=== PATIENT | female | born 1960 | race Caucasian/White ===

== ENCOUNTER 2019-10-23 09:45 | Outpatient (CLI) | payer OTHER, SELFPAY ==
--- NOTE | ~2019-10-23 | MM_ITS ---
EXAMINATION: MM screening [facility] BI w ifeoma HISTORY: Screening mammogram TECHNIQUE: Craniocaudal and mediolateral oblique 3-D tomosynthesis images were obtained and synthetic 2-D images were generated. CAD analysis was submitted and interpreted. COMPARISON: 02/14/2018, 09/06/2016, 02/15/2015 BREAST PARENCHYMAL COMPOSITION: There are scattered areas of fibroglandular density. FINDINGS: Scattered benign-appearing calcifications are present. There is no evidence of suspicious m ass, calcification, or architectural distortion to suggest malignancy in either breast. There has bee n no suspicious interval change. IMPRESSION: 1. No mammographic evidence of malignancy. 2. Recommend routine screening mammography in one year. BI-RADS Category 2: Benign finding(s). Reviewed, dictated and finalized at location A.
== END 2019-10-23 09:46 | disposition home or self-care (01) ==
LOC: ANHIMG 09:47
PROVIDERS: PCP Family Medicine; Visit Provider Obstetrics & Gynecology
DX: Z12.31 Encounter for screening mammogram for malignant neoplasm of breast (principal)
CPT/HCPCS: 77063; 77067

== ENCOUNTER → 2021-05-09 03:34 | Outpatient (CLI) | payer OTHER, SELFPAY ==
[2021-05-09 16:43] LABS: SARS-CoV-2 RNA PCR Negative
== END ==
PROVIDERS: PCP Family Medicine; Visit Provider Internal Medicine Gastroenterology
DX: Z01.812 Encounter for preprocedural laboratory examination (principal); Z20.822 Contact with and (suspected) exposure to COVID-19
CPT/HCPCS: C9803; U0003; U0005

== ENCOUNTER 2021-05-12 02:25 | Day surgery (SDC) | payer OTHER, SELFPAY ==
--- NOTE | 2021-05-09 15:26 | PM.HPGS ---
History of Present Illness History of Present Illness Consent: Risks, benefits, and alternatives have been discussed and questions answered. Patient agrees to proceed with procedure. Chief complaint: rectal bleeding Narrative: [place] Morgan is a 61 year old female year old female presents to office for ER visit for rectal bleeding. She states on Wednesday morning she passed large amount of red blood with loose stools times 5 episodes. Reports reports blood was red in color, it was in the toilet and with blood clots. Rectal resolved later that night but returned 2 days later which prompted her to go ER, reports one episode while in the ER. Her H&H was normal and discharged later that day. She denies any rectal bleeding since but states stools are semi-soft and thin which is unusual for her. Prior to this, she reports regular formed BM once to twice a day. She denies any constipation, straining or large stools. No pain with BM. She denies any black stools. No N/V/abdominal pain/fever/weight loss. No family hx of CRC but father with colostomy, she is unsure why. Last colonoscopy in 2016 diverticulosis only. Review of Systems Review of Systems: All systems reviewed & are unremarkable except as noted in HPI and below PMFSH Past Medical History Medical History Breast cancer screening by mammogram Chronic neck pain Chronic pain of right wrist Degenerative joint disease of hand, left Depression Fever blister GERD (gastroesophageal reflux disease) Obese Right wrist pain Weight gain Family History Family History Father Patient's father is Acute myocardial infarction Mother Cerebrovascular accident Social History Social History Smoking status: Never smoker Alcohol intake: current Alcohol use details: 2 per month Living arrangements: with family Spiritual care concerns: No Meds Home Medications and Allergies Home Medications Medication Instructions Recorded Confirmed Type norethindrone (contraceptive) 0.35 0.35 mg PO DAILY tablet 06/09/19 05/12/21 History mg tablet omeprazole magnesium 20 mg 20 mg PO DAILY 06/09/19 05/12/21 History tablet,delayed release celecoxib 200 mg capsule 200 mg PO DAILY PRN #30 cap 03/31/21 05/12/21 Rx acyclovir 400 mg tablet 400 mg PO DAILY #90 tablet 04/22/21 05/12/21 Rx atorvastatin 10 mg tablet 10 mg PO DAILY #90 tablet 04/22/21 05/12/21 Rx fluoxetine 60 mg tablet 60 mg PO DAILY #90 tablet 04/23/21 05/12/21 Rx aspirin 325 mg PO DAILY 04/28/21 05/12/21 History Allergies Allergy/AdvReac Type Severity Reaction Status Date / Time clavulanic acid Allergy Mild Hives Verified 05/12/21 08:12 [From Augmentin] Exam Resp: Auscultation: clear to auscultation bilaterally Cardio: Rate: regular rate Rhythm: regular rhythm GI: GI Palp: Yes Soft to palpation and No Tenderness to palpation present (GI) Assessment and Plan Assessment and plan (1) Blood in stool: Code(s): K92.1 - Melena Status: Acute Assessment and Plan: Colonoscopy with possible biopsy or polypectomy or cautery or injection of substances.
[2021-05-12 08:13] VITALS: BP 133/96; PULSE 119; RESP 17; TEMP 36.2; O2SAT 96; BMI 29.9
[2021-05-12] MEDS: LACTATED RINGERS 1,000 ML 150 ML IV CONT (08:24)
--- NOTE | 2021-05-12 08:55 | P.PNAN_ITS ---
Anes - Initial Pre Proc Eval Procedure: Operation Date: 05/12/21 09:00 Proposed Procedures p Colonoscopy - Nav Marinelli MD Date/Time: 05/12/21 08:55 Surgeon: Nav Marinelli MD Pre Op Diagnosis: rectal bleeding Patient Data Age: 61 Gender: F Height: 1.6 m Weight: 76.6 kg Last Vital Signs Temp 97.1 F L 05/12/21 08:13 Pulse 119 H 05/12/21 08:13 Resp 17 05/12/21 08:13 BP 133/96 H 05/12/21 08:13 Pulse Ox 96 05/12/21 08:13 Allergies Allergy/AdvReac Type Severity Reaction Status Date / Time clavulanic acid Allergy Mild Hives Verified 05/12/21 08:12 [From Augmentin] Home Medications Medication Instructions Recorded Confirmed Type norethindrone (contraceptive) 0.35 0.35 mg PO DAILY tablet 06/09/19 05/12/21 History mg tablet omeprazole magnesium 20 mg 20 mg PO DAILY 06/09/19 05/12/21 History tablet,delayed release celecoxib 200 mg capsule 200 mg PO DAILY PRN #30 cap 03/31/21 05/12/21 Rx acyclovir 400 mg tablet 400 mg PO DAILY #90 tablet 04/22/21 05/12/21 Rx atorvastatin 10 mg tablet 10 mg PO DAILY #90 tablet 04/22/21 05/12/21 Rx fluoxetine 60 mg tablet 60 mg PO DAILY #90 tablet 04/23/21 05/12/21 Rx aspirin 325 mg PO DAILY 04/28/21 05/12/21 History Patient hx anesthesia problems: none Family hx anesthesia problems: none Results Review: All pre-operative results and documents have been reviewed as part of the pre-operative evaluation. [facility] Past Medical History Medical History Breast cancer screening by mammogram Chronic neck pain Chronic pain of right wrist Degenerative joint disease of hand, left Depression Fever blister GERD (gastroesophageal reflux disease) Obese Right wrist pain Weight gain Family History Family History Father Patient's father is Acute myocardial infarction Mother Cerebrovascular accident Social History Social History Smoking status: Never smoker Alcohol intake: current Alcohol use details: 2 per month Living arrangements: with family Spiritual care concerns: No Anes - Eval Final PreProcedure Day of Procedure 05/12/21 08:55 Patient weight: overweight Heart: regular rate and rhythm Lungs: clear to auscultation Airway: Mallampati scale class II Neurological: alert and oriented Last oral intake: >/= 8 hours ASA classification: III Emergent: no Anesthetic plan: proceed Anesthesia type and monitoring: general GIVS and standard monitoring Results Review: All pre-operative results and documents have been reviewed as part of the pre-operative evaluation. Informed Consent: The patient's anesthetic plan and its attendant risks and benefits were discussed with the patient/family/POA. Questions were solicited and answers provided to the satisfaction of the patient/family/POA.
[2021-05-12 09:22] VITALS: BP 109/72; PULSE 91; RESP 17; O2SAT 96
[2021-05-12 09:32] VITALS: BP 129/83; PULSE 96; RESP 20; O2SAT 99
[2021-05-12 09:42] VITALS: BP 148/94; PULSE 96; RESP 22; O2SAT 100
== END 2021-05-12 09:57 | disposition home or self-care (01) ==
PROVIDERS: PCP Family Medicine; Visit Provider Internal Medicine Gastroenterology
PROC: 0DJD8ZZ Inspection of Lower Intestinal Tract, Via Natural or Artificial Opening Endoscopic (ICD-10-PCS; CPT 45378; principal; 2021-05-12 09:00)
DX: K62.5 Hemorrhage of anus and rectum (principal); K57.30 Diverticulosis of large intestine without perforation or abscess without bleeding; K64.8 Other hemorrhoids; K21.9 Gastro-esophageal reflux disease without esophagitis; F32.9 Major depressive disorder, single episode, unspecified
CPT/HCPCS: 45378; C9803; J2001; J2704; J7120; U0003; U0005

== ENCOUNTER 2022-04-24 05:29 | Emergency (ER) | payer OTHER, SELFPAY ==
--- NOTE | ~2022-04-24 | CT_ITS ---
EXAMINATION: CT abdomen pelvis wo con DATE: 04/24/2022 06:35 INDICATION: Left lower quadrant abdominal pain TECHNIQUE: Computed tomography (CT) of the abdomen and pelvis was performed without intravenous contr ast. Automated exposure control and iterative reconstruction technique were employed. The dose-length product was 626.48 mGy-cm. COMPARISON: None FINDINGS: Atelectasis at the medial aspect of the bilateral lower lobes along side a large sliding-type hiatal hernia which contains essentially the entire stomach. Couple calcified gallstones within the otherwis e normal gallbladder. Liver, spleen, pancreas and bilateral adrenal glands are normal. Bilateral neph rolithiasis with stones measuring up to 2 mm in the left kidney and a 1-2 mm stone at the lower pole of the right kidney. 1-2 mm stone at the distalmost left ureter within 1 cm the ureterovesicular junc tion with mild left hydronephrosis and mild perinephric stranding. There is moderate colonic divertic ulosis with a sigmoid and descending colon predominance. There is no adjacent inflammatory change to suggest diverticulitis. Small bowel and appendix are normal. Bladder, uterus and bilateral adnexa ar e unremarkable. No free intraperitoneal gas or fluid. No pathologically enlarged abdominal or pelvic lymphadenopathy. Moderate to severe spondylosis at the lower thoracic and upper lumbar spine. IMPRESSION: 1. Bilateral nephrolithiasis with obstructing non-2 mm distal left ureteral stone with mild left hydr onephrosis. 2. Large sliding-type hiatal hernia. 3. Cholelithiasis. 4. Diverticulosis. Reviewed, dictated and finalized at location A. IMPRESSION: 1. Bilateral nephrolithiasis with obstructing non-2 mm distal left ureteral sto ne with mild left hydronephrosis. 2. Large sliding-type hiatal hernia. 3. Cholelithiasis. 4. Diverticulosis.
[2022-04-24 05:44] VITALS: BP 151/102; PULSE 101; RESP 16; O2SAT 96
--- NOTE | 2022-04-24 05:47 | ED.GENADULT ---
HPI - General Adult General Chief complaint: Urogenital-Female <Reggie Webster MD - Last Filed: 04/30/22 07:02> Stated complaint: flank pain <Reggie Webster MD - Last Filed: 04/30/22 07:02> Time Seen by Provider: 04/24/22 05:30 <Reggie Webster MD - Last Filed: 04/30/22 07:02> History of Present Illness HPI narrative: 61 year-old female presented the emergency department for evaluation of left lower quadrant pain. Patient states during the night she was having burning and chills. Patient states that she did have some pain with urination but began having some left lower quadrant pain. Patient suspected she was having a urinary tract infection. Patient denies any prior history of kidney stones. Patient denies any associated nausea or vomiting. <Reggie Webster MD - Last Filed: 04/30/22 07:02> Related Data Home medications: Home Medications Medication Instructions Recorded Confirmed omeprazole magnesium 20 mg 20 mg PO DAILY 06/09/19 12/01/21 tablet,delayed release (Prilosec OTC) aspirin 325 mg tablet 325 mg PO DAILY 04/28/21 12/01/21 <Reggie Webster MD - Last Filed: 04/30/22 07:02> Allergies/adverse reactions: Allergies Allergy/AdvReac Type Severity Reaction Status Date / Time clavulanic acid Allergy Mild Hives Verified 04/24/22 05:47 [From Augmentin] <Reggie Webster MD - Last Filed: 04/30/22 07:02> Review of Systems Review of Systems: CONSTITUTIONAL: Denies fever, chills, or sweats. EYES: Denies visual changes, redness, or discharge. ENT: Denies rhinorrhea, congestion, sore throat, or otalgia. CARDIOVASCULAR: Denies chest pain, palpitations, or edema. RESPIRATORY: Denies cough or dyspnea. GASTROINTESTINAL: Denies abdominal pain, nausea, vomiting, or diarrhea. GENITOURINARY: Left flank and left lower quadrant pain SKIN: Denies rash or itching. MUSCULOSKELETAL: Denies back pain, joint pain, or myalgia. NEUROLOGIC: Denies headache, numbness, or weakness. <Reggie Webster MD - Last Filed: 04/30/22 07:02> [facility] Past Medical History Medical History: Medical History (Updated 04/25/22 @ 00:00 by Background Dasole) Asymptomatic microscopic hematuria Breast cancer screening by mammogram Chronic neck pain Chronic pain of right wrist Colon cancer screening (05/12/21) normal colonoscopy 05/12/2021 with internal hemorrhoids and diverticulosis, we will recheck in 10 years Degenerative joint disease of hand, left Depression Fever blister GERD (gastroesophageal reflux disease) Obese Obesity (BMI 30.0-34.9) Right wrist pain Weight gain <Reggie Webster MD - Last Filed: 04/30/22 07:02> Family History Family History: Family History Father Patient's father is Acute myocardial infarction Mother Cerebrovascular accident <Reggie Webster MD - Last Filed: 04/30/22 07:02> Social History Social History: Social History Smoking status: Never smoker Alcohol intake: current Alcohol use details: 2 per month Spiritual care concerns: No <Reggie Webster MD - Last Filed: 04/30/22 07:02> Exam Narrative: APPEARANCE: Well appearing, no pain, no distress, well-nourished. HEAD: normocephalic, atraumatic. EYES: PERRLA/EOMI, conjunctivae clear. NOSE: Normal no drainage NECK: Supple. No adenopathy, no masses. RESPIRATORY: Airway patent, respirations nonlabored. Clear to auscultation bilaterally, no rales, rhonchi, wheezing. CARDIOVASCULAR: Regular rate and rhythm without murmurs rubs or gallops. ABDOMINAL: Soft, nontender, nondistended, normal bowel sounds MUSCULOSKELETAL: Moves all extremities. Strength/ROM intact, No edema, No calf tenderness. NEURO: Alert. Cranial nerves II through XII intact. Grossly intact SKIN: Warm, dry. Normal Color <Reggie Webster MD - Last Filed: 04/30/22 07:02> Course Cou
[2022-04-24 06:00] LABS: Basophils Percent Auto 0.3 % (0.2-1.2); Eosinophils Absolute Auto 0.1 K/mm3 (0-0.3); Eosinophils Percent Auto 0.7 % (0-4.4); Hematocrit 47.8 % (37.0-47.0); Hemoglobin 16.1 g/dL (12.0-15.0); Immature Granulocyte Absolute 0.05 K/mm3 (0.00-0.031); Immature Granulocyte Percent A 0.5 % (0-0.5); Lymphocytes Absolute Auto 0.76 K/mm3 (0.9-3.2); Lymphocytes Percent Auto 7.2 % (18.3-44.2); Mean Corpuscular HGB Conc 33.7 g/dl (32-36); Mean Corpuscular Hemoglobin 30.7 pg (26-34); Mean Corpuscular Volume 91.2 fl (80-100); Mean Platelet Volume 9.8 fl (7.4-10.4); Monocytes Absolute Auto 0.3 K/mm3 (0.1-0.6); Neutrophils Absolute Auto 9.3 K/mm3 (1.3-6.7); Neutrophils Percent Auto 88.3 % (45.5-73.1); Platelet Count Result 238 k/mm3 (150-375); Red Blood Count 5.24 M/mm3 (4.2-5.4); White Blood Count 10.5 K/mm3 (4.5-10.0)
[2022-04-24 06:08] LABS: Alanine Aminotransferase 31 U/L (6-35); Albumin Level 4.6 g/dL (3.5-5.1); Alkaline Phosphatase 127 U/L (38-126); Anion Gap 11 mmol/L (8-16); Aspartate Amino Transferase 35 U/L (14-36); Bilirubin,Total 0.7 mg/dL (0.2-1.3); Blood Urea Nitrogen 19 mg/dL (7-17); Calcium 8.9 mg/dL (8.4-10.2); Carbon Dioxide 24 mmol/L (22-30); Chloride 105 mmol/L (98-107); Estimated CRCL calculation 58 ml/min; Estimated Glomerular Filt Rate > 60; Glucose 152 mg/dL (65-110); Potassium 3.6 mmol/L (3.4-5.0); Sodium 140 mmol/L (137-145)
[2022-04-24 06:23] LABS: Appearance Urine Clear (Clear); Bilirubin Urine Negative (Negative); Blood Urine 2+ (Negative); Color Urine Light Yellow (Yellow); Glucose Urine UA Negative (Negative); Ketones Urine Trace mg/dL (Negative); Leukocyte Esterase Ur Negative LEU/UL (Negative); Nitrate Urine Negative (Negative); Protein Urine Negative (Negative); Urobilinogen Urine 0.2 mg/dL (<2.0); pH Urine 7.5 (5.0-9.0)
[2022-04-24 06:58] LABS: Mucus Urine Rare /lpf; RBC Urine 21-50 /hpf (0-2); Squamous Epithelial Cell Urine Rare /hpf (Few); WBC Urine 0-3 /hpf
[2022-04-24 07:08] LABS: Add Urine Microscopic? YES
[2022-04-24 09:50] VITALS: BP 141/88; PULSE 93; RESP 16; O2SAT 99
== END 2022-04-24 09:50 | disposition home or self-care (01) ==
PROVIDERS: Emergency Medicine; Emergency Provider Emergency Medicine; PCP Family Medicine
DX: N13.2 Hydronephrosis with renal and ureteral calculous obstruction (principal); K21.9 Gastro-esophageal reflux disease without esophagitis; E66.9 Obesity, unspecified; Z68.31 Body mass index [BMI] 31.0-31.9, adult; M19.042 Primary osteoarthritis, left hand; K44.9 Diaphragmatic hernia without obstruction or gangrene; K80.20 Calculus of gallbladder without cholecystitis without obstruction; K57.90 Diverticulosis of intestine, part unspecified, without perforation or abscess without bleeding; Z79.82 Long term (current) use of aspirin
CPT/HCPCS: 36415; 74176; 80053; 81001; 85025; 99284

== ENCOUNTER → 2022-05-18 12:54 | Outpatient (CLI) | payer OTHER, SELFPAY ==
--- NOTE | ~2022-05-18 | MM_ITS ---
EXAMINATION: MM screening [facility] BI w ifeoma HISTORY: Screening TECHNIQUE: Craniocaudal and mediolateral oblique 3-D tomosynthesis images were obtained and synthetic 2-D images were generated. CAD analysis was submitted and interpreted. COMPARISON: Comparison to multiple prior studies sequentially, with oldest reviewed study dated 01/02. BREAST PARENCHYMAL COMPOSITION: There are scattered areas of fibroglandular density. FINDINGS: There is no evidence of suspicious mass, calcification, or architectural distortion to sugg est malignancy in either breast. There has been no suspicious interval change. IMPRESSION: 1. No mammographic evidence of malignancy. 2. Recommend routine screening mammography in one year. BI-RADS Category 1: Negative Reviewed, dictated and finalized at location A.
== END ==
PROVIDERS: PCP Family Medicine; Visit Provider Obstetrics & Gynecology
DX: Z12.31 Encounter for screening mammogram for malignant neoplasm of breast (principal)
CPT/HCPCS: 77063; 77067

== ENCOUNTER → 2022-06-08 12:35 | Outpatient (CLI) | payer OTHER, SELFPAY ==
--- NOTE | ~2022-06-08 | DEXA_ITS ---
Bone Density Report Name: RY GARG Age: 62 Sex: Female Ethnicity: White Date of : 1960 Indication: postmenopausal; screening for osteoporosis; Referring Provider: Enedina Barr Study: Bone densitometry was performed. Exam Date: June 08, 2022 Accession number: [id number] Bone Density: Region BMD T-score Z-score Classification AP Spine (L1-L4) 1.006 -0.4 1.1 Normal Femoral Neck (Left) 0.732 -1.1 0.3 Osteopenia Total Hip (Left) 0.902 -0.3 0.7 Normal Femoral Neck (Right) 0.654 -1.8 -0.4 Osteopenia Total Hip (Right) 0.901 -0.3 0.7 Normal Total Hip Mean 0.902 -0.3 0.7 Normal World Health Organization criteria for BMD impression classify patients as: Normal (T-score at or above -1.0), Osteopenia (T-score between -1.0 and -2.5), or Osteoporosis (T-score at or below -2.5). 10-year Fracture Risk(1): Major Osteoporotic Fracture 8.6% Hip Fracture 0.9% Reported Risk Factors: [place] (), Neck BMD=0.654, BMI=30.7 (1) FRAX(R) Version 3.08. Fracture probability calculated for an untreated patient. Fracture probability may be lower if the patient has received treatment. Clinical Information Provided by Patient: Patient maximum height was 64 Menopause Age: 51 No regular weight bearing exercise Drinks caffeinated beverages Onset of menses at age 13 Number of children 2 Impression: The patient has low bone mass, based on the Right Femoral Neck T-score. The patient has an estimated ten-year risk of hip fracture of 0.9% and an estimated ten-year risk of major fracture of 8.6%, based on the WHO FRAX algorithm. Discussion: BONE DENSITY IS LOW AT ONE OR MORE SKELETAL SITES. This patient's lowest T-score is low at one or more skeletal sites. It meets the World Health Organization's (WHO) criteria for ?low bone mass? (T-score between -1.0 and -2.5). The patient's 10-year risk of fracture as calculated by FRAX is less than the threshold where pharmacological therapy is recommended by the National Osteoporosis Foundation (NOF). However, all treatment decisions require clinical judgment and consideration of individual patient factors, including patient preferences, comorbidities, previous drug use, risk factors not captured in the FRAX model (e.g., frailty, falls, vitamin D deficiency, increased bone turnover, interval significant decline in bone density) and possible under or overestimation of fracture risk by FRAX. The patient should follow a healthful lifestyle (good nutrition with adequate calcium and vitamin D, and appropriate weight-bearing exercise). Follow-Up: Consider repeating this study in 2 to 3 years to reassess this patient's status, or sooner if there is some new clinical indication. Reported by: ELVA on 06/08/2022 1:01:00 PM.
== END ==
PROVIDERS: PCP Family Medicine; Visit Provider Obstetrics & Gynecology
DX: Z78.0 Asymptomatic menopausal state (principal); M85.852 Other specified disorders of bone density and structure, left thigh; M85.851 Other specified disorders of bone density and structure, right thigh
CPT/HCPCS: 77080

== ENCOUNTER 2022-11-23 07:52 | Outpatient (CLI) | payer OTHER, SELFPAY ==
--- NOTE | ~2022-11-23 | US_ITS ---
US abdomen limited INDICATION: Abnormal levels of serum enzymes. PROCEDURE: Realtime right upper abdominal ultrasound. COMPARISON: No prior studies for comparison. FINDINGS: The pancreas is normal without focal mass or pancreatic ductal dilation. Liver echotexture is increased, consistent with fatty infiltration. No focal hepatic masses. There is normal directio nal flow in the portal vein. There are gallstones. Mild gallbladder wall thickening measuring 3 mm. Common bile duct measures 4 m m. No sonographic Alexander's sign. IMPRESSION: 1: Cholelithiasis with mild gallbladder wall thickening. 2: Hepatic steatosis. Reviewed, dictated and finalized at location B.
== END 2022-11-23 07:53 | disposition home or self-care (01) ==
PROVIDERS: PCP Family Medicine; Visit Provider Nurse Practitioner Family
DX: R74.8 Abnormal levels of other serum enzymes (principal); R79.89 Other specified abnormal findings of blood chemistry; K80.20 Calculus of gallbladder without cholecystitis without obstruction; K76.0 Fatty (change of) liver, not elsewhere classified
CPT/HCPCS: 76705

== ENCOUNTER 2023-02-01 13:20 | Outpatient (CLI) | payer OTHER, SELFPAY ==
--- NOTE | 2023-02-01 14:05 | ECG_ITS ---
Measurements Intervals [place] Rate: 86 P: 34 PA: 159 QRS: 46 QRSD: 83 T: 42 QT: 379 QTc: 455 Interpretive Statements SINUS RHYTHM NORMAL ECG NO PREVIOUS ECG AVAILABLE FOR COMPARISON Electronically Signed On 02-01-2023 14:36:23 CDT by Vick Jenkins D.O.
[2023-02-01 14:12] LABS: Basophils Percent Auto 0.7 % (0.2-1.2); Eosinophils Absolute Auto 0.2 K/mm3 (0-0.3); Eosinophils Percent Auto 3.8 % (0-4.4); Hematocrit 44.5 % (37.0-47.0); Hemoglobin 14.8 g/dL (12.0-15.0); Immature Granulocyte Absolute 0.01 K/mm3 (0.00-0.031); Immature Granulocyte Percent A 0.2 % (0-0.5); Lymphocytes Absolute Auto 1.31 K/mm3 (0.9-3.2); Lymphocytes Percent Auto 23.8 % (18.3-44.2); Mean Corpuscular HGB Conc 33.3 g/dl (32-36); Mean Corpuscular Hemoglobin 30.8 pg (26-34); Mean Corpuscular Volume 92.7 fl (80-100); Monocytes Absolute Auto 0.4 K/mm3 (0.1-0.6); Monocytes Percent Auto 6.4 % (2.6-8.5); Neutrophils Absolute Auto 3.6 K/mm3 (1.3-6.7); Neutrophils Percent Auto 65.1 % (45.5-73.1); Platelet Count Result 232 k/mm3 (150-375); White Blood Count 5.5 K/mm3 (4.5-10.0)
[2023-02-01 14:18] LABS: Appearance Urine Cloudy (Clear); Bacteria Urine None Seen /hpf; Bilirubin Urine Negative (Negative); Blood Urine Negative (Negative); Color Urine Dark Yellow (Yellow); Glucose Urine UA Negative (Negative); Ketones Urine Trace mg/dL (Negative); Leukocyte Esterase Ur 1+ LEU/UL (Negative); Nitrate Urine Negative (Negative); Protein Urine 2+ mg/dL (Negative); Specific Grav Ur 1.025 (1.001-1.035); Squamous Epithelial Cell Urine Few /hpf (Few); pH Urine 5.5 (5.0-9.0)
[2023-02-01 14:22] LABS: Add Urine Microscopic? YES
== END 2023-02-01 13:21 | disposition home or self-care (01) ==
PROVIDERS: PCP Family Medicine; Referring Provider Family Medicine; Visit Provider Orthopaedic Surgery
DX: D50.9 Iron deficiency anemia, unspecified (principal); E78.2 Mixed hyperlipidemia; M17.11 Unilateral primary osteoarthritis, right knee; Z01.818 Encounter for other preprocedural examination
CPT/HCPCS: 36415; 81001; 85025; 87086; 93005

== ENCOUNTER 2023-03-11 13:48 | Outpatient (CLI) | payer OTHER, SELFPAY ==
[2023-03-11 15:38] LABS: Urine Cotinine NEGATIVE
[2023-03-11 15:38] LABS: Prothrombin Time 13.9 Seconds (11.1-14.7)
[2023-03-11 15:40] LABS: Appearance Urine Clear (Clear); Bacteria Urine None Seen /hpf; Bilirubin Urine Negative (Negative); Blood Urine Negative (Negative); Color Urine Yellow (Yellow); Glucose Urine UA Negative (Negative); Ketones Urine Negative (Negative); Leukocyte Esterase Ur 2+ LEU/UL (Negative); Nitrate Urine Negative (Negative); Non Pathogenic Casts 0-2; Protein Urine Negative (Negative); RBC Urine 0-2 /hpf (0-2); Squamous Epithelial Cell Urine None seen /hpf (Few); Urobilinogen Urine 0.2 mg/dL (<2.0); WBC Urine 21-50 /hpf
[2023-03-11 15:40] LABS: Partial Thromboplastin Time 31.2 SECONDS (22.3-36.8)
[2023-03-11 15:46] LABS: Albumin Level 4.2 g/dL (3.5-5.1); Anion Gap 5 mmol/L (8-16); Blood Urea Nitrogen 20 mg/dL (7-17); Calcium 8.9 mg/dL (8.4-10.2); Carbon Dioxide 31 mmol/L (22-30); Chloride 104 mmol/L (98-107); Estimated Glomerular Filt Rate > 60; Glucose 120 mg/dL (65-110); Potassium 3.6 mmol/L (3.4-5.0); Sodium 140 mmol/L (137-145)
[2023-03-11 15:46] LABS: Hemoglobin A1C 5.2 % (<5.7)
[2023-03-11 15:49] LABS: Add Urine Microscopic? YES
== END 2023-03-11 13:49 | disposition home or self-care (01) ==
PROVIDERS: PCP Family Medicine; Visit Provider Orthopaedic Surgery
DX: D50.9 Iron deficiency anemia, unspecified (principal); M17.11 Unilateral primary osteoarthritis, right knee; Z01.818 Encounter for other preprocedural examination
CPT/HCPCS: 80048; 80307; 81001; 82040; 83036; 85610; 85730; 86850; 86900; 86901; 87081; 87086

== ENCOUNTER 2023-03-24 02:44 | Day surgery (SDC) | payer OTHER, SELFPAY ==
--- NOTE | 2023-03-11 13:30 | PC.NURSE ---
Addendum entered by Cyndi Davis RN 03/11/23 14:26: STOP ASPIRIN 7 DAYS PRIOR TO SURGERY, LAST DOSE TO BE TAKEN 03/16/23 Original Note: PRE-OP INSTRUCTIONS, PLEASE READ CAREFULLY Report to the Outpatient Waiting Room, entrance under the green pavilion located off [facility], at time _0830_ on date _03/24/23_. Planned Procedure Time: _1030_. PACK A SMALL OVERNIGHT BAG AND LEAVE IN THE CAR ALONG WITH YOUR WALKER Time changes happen often and if your time is changed the preop area will call you the afternoon before. - You and your visitor will be asked to self-screen and do not enter if you have any COVID symptoms. - A mask is optional within the hospital at this time. -VISITING HOURS 8AM-8PM Patients may have clear liquids (water, carbonated beverages, clear teas, apple juice) until 3 hours prior to surgery (0730 AM) with a maximum of 20 ounces. - No food from midnight until time of surgery Take the following medications with a SIP of water the morning of surgery: _NONE_ DO NOT STOP ANY OF YOUR OTHER PRESCRIPTION MEDICATIONS PRIOR TO SURGERY ?EXCEPT THE FOLLOWING Medications to discontinue - _ASPIRIN CALL DR. GARCIA'S OFFICE FOR INSTRUCTIONS, Date to take last dose_ Please no make-up, nail chadian, hairspray, perfume, deodorant, or body powder the day of surgery. No jewelry (including any body piercings) or valuables the day of surgery, leave them at home. Please take a shower or bath the night before, or the morning of, surgery with an antibacterial soap. Wear comfortable, loose fitting clothing. - Jewelry must be removed prior to entering the operating room. Rings and piercings that are not removed may be cut off. - The hospital will not accept responsibility for valuables. - Please leave all valuables, including medications, at home the day of surgery. If you are going home after surgery, a licensed local flatbed driver must drive you home. - NO public transportation without another adult if you receive anesthesia. - We recommend that an adult stay with you for 24 hours following discharge. - We also recommend that you do not drive, make important decision, drink alcoholic beverages, or take any drugs that were not prescribed by your health care provider for at least 24 hours after your discharge time. - FOLLOW ALL INSTRUCTIONS GIVEN TO YOU BY YOUR SURGEON - NIKOLAS DIRECTED If you or anyone in your household have experienced Covid symptoms in the past week, please notify your surgeon or the nurse liaison at the phone number below for possible testing. Instructions given to _PATIENT_and asked if any additional questions and then verbalized understanding. Patient advised to call surgeon office or pre surgery nurse liaison [phone] if any additional questions.
[2023-03-11 13:59] VITALS: BP 150/90; PULSE 98; RESP 20; TEMP 37; O2SAT 96; BMI 32.1
[2023-03-24] VITALS (15 sets, daily range): BP systolic 135–190; BP diastolic 71–111; PULSE 78–109; RESP 8–18; TEMP 35.7–37; O2SAT 92–100; BMI 33.8
--- NOTE | ~2023-03-24 | XR_ITS ---
EXAMINATION: [id number] DATE: 03/24/2023 13:16 INDICATION: Postoperative evaluation following right total knee arthroplasty. TECHNIQUE: Anteroposterior and lateral views of the right knee were obtained. COMPARISON: None. FINDINGS: Right total knee arthroplasty without patellar resurfacing appears well seated and in near anatomic a lignment. No fractures identified. Anterior skin sedrick and expected postoperative subcutaneous, in tramedullary and intra-articular gas. IMPRESSION: 1. Right total knee arthroplasty, negative for postoperative purposes. Reviewed, dictated and finalized at location A.
--- NOTE | 2023-03-24 07:25 | WPDHPUPDATE1 ---
History and Physical Update Update Date/Time: 03/24/23 07:25 History and Physical has been reviewed, including an updated exam of the patient. There are NO changes in the patient's condition. Risks, benefits, and alternatives have been discussed and questions answered. Patient agrees to proceed with procedure.
--- NOTE | 2023-03-24 08:55 | WPDANESEPPF ---
Anes - Initial Pre Proc Eval Procedure: Operation Date: 03/24/23 10:30 Proposed Procedures p Right Total Knee Arthroplasty - Fish Grace MD Date/Time: 03/24/23 08:55 Surgeon: Fish Grace MD Pre Op Diagnosis: Rt Knee DJD Patient Data Age: 62 Gender: F Height: 1.6 m Weight: 82.3 kg Last Vital Signs Temp 37.0 C 03/11/23 13:59 Pulse 98 03/11/23 13:59 Resp 20 03/11/23 13:59 BP 150/90 H 03/11/23 13:59 Pulse Ox 96 03/11/23 13:59 O2 Del Method Room Air 03/11/23 13:59 Allergies Allergy/AdvReac Type Severity Reaction Status Date / Time clavulanic acid Allergy Mild Hives Verified 03/24/23 09:22 [From Augmentin] Home Medications Medication Instructions Recorded Confirmed Type omeprazole magnesium 20 mg 20 mg PO DAILY 06/09/19 03/24/23 History tablet,delayed release (Prilosec OTC) aspirin 325 mg tablet 325 mg PO DAILY 04/28/21 03/24/23 History acyclovir 400 mg tablet 400 mg PO DAILY #90 tabs 07/08/22 03/24/23 Rx chlorhexidine gluconate 4 % 1 applic topical DAILY #237 mL 03/11/23 03/24/23 Rx topical liquid (Hibiclens) duloxetine 60 mg capsule,delayed 60 mg PO DAILY 03/11/23 03/24/23 History release atorvastatin 10 mg tablet 10 mg PO DAILY #90 tabs 03/23/23 03/24/23 Rx celecoxib 200 mg capsule (Celebrex) 200 mg PO DAILY PRN pain #30 caps 03/23/23 03/24/23 Rx Patient hx anesthesia problems: none Family hx anesthesia problems: none Results Review: All pre-operative results and documents have been reviewed as part of the pre-operative evaluation. [facility] Past Medical History Medical History (Updated 03/24/23 @ 08:56 by Andrea Day DO) Anxiety Asymptomatic microscopic hematuria Blood typing encounter (03/11/23) AB+, antibody negative BMI 31.0-31.9,adult Breast cancer screening by mammogram Cholelithiasis multiple gallstones on ultrasound 5/8/3 with mild thickening of the gallbladder wall and fatty changes the liver. Chronic neck pain Chronic pain of right wrist Colon cancer screening (05/12/21) normal colonoscopy 05/12/2021 with internal hemorrhoids and diverticulosis, we will recheck in 10 years CVA (cerebral vascular accident) age 46 Degenerative joint disease of hand, left Depression DVT (deep venous thrombosis) Elevated alkaline phosphatase level alkaline phosphatase 154 with AST 28 and ALT 36 on 09/26/2022, previous 127, 120, 106. Elevated liver function tests Fatty infiltration of liver fatty changes of the liver on abdominal ultrasound 11/23/2022. Fever blister Gastroenteritis GERD (gastroesophageal reflux disease) Left ureteral stone (04/24/22) 2 mm distal left ureteral stone 04/24/2022 with bilateral renal stones. Obese Obesity (BMI 30.0-34.9) Right wrist pain UTI (urinary tract infection) Weight gain Family History Family History Father Patient's father is Acute myocardial infarction Mother Cerebrovascular accident Social History Social History Smoking status: Never smoker Second hand tobacco smoke exposure: Yes (SPOUSE) Additional smoking assessment comments: PT DENIES ALL FORMS OF TOBACCO USE Alcohol intake: current Alcohol use details: 1-2/MONTH Substance use: never Substance use type: does not use Lack of Transportation: No Lack of Food: Never True Current Housing: I Have Housing Concerned About Future Housing: No Difficulty Paying Gas/Electric Bills: No Difficulty Paying for Meds: No Currently Unemployed: No Education: High School Diploma/GED Difficulty w/ Childcare or Family Care: No Living arrangements: with family Spiritual care concerns: No Anes - Eval Final PreProcedure Day of Procedure 03/24/23 08:55 Patient weight: obese Heart: regular rate and rhythm Lungs: clear to auscultation Airway: Mallampati scale class II Neuro
--- NOTE | 2023-03-24 08:56 | WPDANESPNB ---
Anes - Peripheral Nerve Block Date/Time: 03/24/23 08:56 I have discussed with the patient/family/POA the placement of a peripheral nerve block for post-operative pain management, including associated risks, benefits, complications, and side effects. Alternative methods of post-operative analgesia were detailed. Questions were solicited and answers provided to the satisfaction of the patient/family/POA. Time-Out: A pre-procedural Time-Out was completed immediately before starting the procedure and confirmed: Patient Identification, Site, Procedure, Patient Position and the Availability of Requisite Equipment. Clinical Indications: Acute post-operative pain management requested by the operative surgeon. Nerve Block Insertion Note Anes-nerve block: adductor canal right Patient position: supine Skin prep: chlorhexidine Needle: 22 gauge, stimulating, insulated echogenic needle. Needle length: 80 mm Technique: ultrasound Injectate: bupivacaine 0.5% with epi 5 mcg/ml (30cc - no epi) Observations: tolerated well Complications: none Procedure start time:: 1019 Procedure end time:: 1023
[2023-03-24] MEDS: LACTATED RINGERS 1,000 ML 30 ML IV CONT ×2 (09:33→12:48)
[2023-03-24] MEDS: ACETAMINOPHEN 500 MG TABLET 1000 MG PO (10:00)
[2023-03-24] MEDS: TRANEXAMIC ACID 1,000MG/ISO100 1,000 MG/100 ML BAG 200 MG IVPB (10:01)
[2023-03-24] MEDS: ceFAZolin 2 GM/D5W 50 ML 2 GM/50 ML BAG IVPB ×2 (10:43→18:45)
[2023-03-24] MEDS: TRANEXAMIC ACID 1,000 MG/10 ML AMPUL 1000 MG IV PUSH (11:57)
[2023-03-24] MEDS: GENTAMICIN BONE CEMENT REFOBACIN 1 EACH TOPICAL (12:04)
--- NOTE | 2023-03-24 12:42 | W.PM.PROC2 ---
Procedure Note - Detailed Date of Procedure 03/24/23 Pre-op Diagnosis Rt Knee DJD Post-op Diagnosis Same Procedure Performed R TKA Surgeon Fish Grace MD Anesthesia General Description of Procedure THE RIGHT KNEE WAS PREPPED AND DRAPED IN THE STERILE FASHION. THERE WAS A 10 DEGREE FLEXION CONTRACTURE. A MIDLINE SKIN INCISION WAS MADE. A MEDIAL PARAPATELLAR ARTHROTOMY WAS MADE. THE PATELLA WAS EVERTED. THERE WAS TRICOMPARTMENT DJD. THERE WAS MINIMAL PATELLA DJD. AN INTRAMEDULLARY SRI WAS PLACED IN THE FEMUR. A DISTAL FEMORAL CUT WAS MADE IN 5 DEGREES OF VALGUS REMOVING APPROXIMATELY 9 MM OF BONE FROM THE DISTAL FEMUR. THE FEMUR WAS SIZED TO 62.5. A 62.5 FEMORAL CUTTING BLOCK WAS PLACED IN 3 DEGREES OF EXTERNAL ROTATION AND IN ALIGNMENT WITH PETRA'S LINE AND THE TRANSEPICONDYLAR AXIS. ANTERIOR POSTERIOR AND CHAMFER CUTS WERE MADE. THE CUTS WERE EXCELLENT. NEXT AN INTRAMEDULLARY CUTTING GUIDE WAS PLACED IN THE TIBIA. A TRANS TIBIAL CUT WAS MADE ALONG THE LONG AXIS OF THE TIBIA. APPROXIMATELY 10 MM OF BONE WAS REMOVED FROM THE HIGH SIDE OF THE TIBIA. THE TIBIA WAS THEN PLANED TO A SMOOTH SURFACE. POSTERIOR FEMORAL OSTEOPHYTES WERE REMOVED FROM THE FEMORAL CONDYLES. A 71 TIBIAL TRIAL WAS PLACED IN ALIGNMENT WITH THE 1/3 MEDIAL ASPECT OF THE TIBIAL TUBERCLE. THEN A 62.5 FEMORAL TRIAL COMPONENT WAS PLACED. BOTH HAD EXCELLENT FITS. EVENTUALLY AN 11 MM CR POLYETHYLENE TRIAL COMPONENT WAS PLACED. THE KNEE WAS TAKEN THROUGH A RANGE OF MOTION. THE KNEE CAME OUT TO FULL EXTENSION. THERE WAS NO ABNORMAL TILT TO THE PATELLA. THERE WAS GOOD A/P AND VARUS/VALGUS STABILITY. THERE WAS NO EXCESSIVE ROLL BACK WITH FLEXION. THE TRIAL COMPONENTS WERE REMOVED. THEN A 62.5 FEMORAL COMPONENT AND 71 TIBIAL COMPONENT WITH AN 11 CR POLYETHYLENE COMPONENT WERE CEMENTED INTO PLACE. ONCE THE CEMENT WAS HARD THE KNEE WAS TAKEN THROUGH A ROM AGAIN AND FOUND TO BE STABLE WITH NO PATELLA TILT NO EXCESSIVE ROLL BACK WITH FLEXION AND GOOD STABILITY WITH COMPLETE AND FULL EXTENSION. THE KNEE WAS IRRIGATED WITH STERILE BETADINE AND WATER FOR ABOUT 3 MINUTES. THE BLEEDERS WERE CAUTERIZED. THE ARTHROTOMY WAS REPAIRED WITH NUMBER 1 VICRYL. THE SUB CUTANEOUS LAYER WITH 2-0 VICRYL AND THE SKIN WITH ALIDA. THE WOUND WAS WASHED AND A STERILE DRESSING WAS APPLIED. PATIENT WAS EXTUBATED. Estimated Blood Loss -150.0 Pathology None sent Complications No immediate complications Condition Stable Disposition PACU
[2023-03-24] MEDS: LABETALOL HCL INJ 100 MG/20 ML VIAL IV PUSH (13:39)
--- NOTE | 2023-03-24 13:44 | SUR.PHASEI ---
1342: Simple mask removed.
[2023-03-24] MEDS: ONDANSETRON INJ 4 MG/2 ML VIAL IV PUSH (18:45)
[2023-03-24] MEDS: KETOROLAC 15 MG/ML VIAL (*BKC) IV PUSH (18:46)
[2023-03-24] MEDS: SODIUM CHLORIDE 0.9% IV 1,000 ML 125 ML IV CONT (18:48)
[2023-03-24] MEDS: SENNA/DOCUSATE SODIUM TABLET 2 TAB PO (18:56)
[2023-03-24] MEDS: FAMOTIDINE 20 MG TABLET PO (20:02)
[2023-03-25 01:00] VITALS: BP 130/75; PULSE 99; RESP 20; TEMP 35.8; O2SAT 97
[2023-03-25] MEDS: KETOROLAC 15 MG/ML VIAL (*BKC) IV PUSH ×3 (01:24→13:10)
[2023-03-25] MEDS: ceFAZolin 2 GM/D5W 50 ML 2 GM/50 ML BAG IVPB ×2 (01:25→10:20)
[2023-03-25 06:00] VITALS: BP 125/78; PULSE 107; RESP 18; TEMP 36.8; O2SAT 97
[2023-03-25 06:54] LABS: Basophils Percent Auto 0.1 % (0.2-1.2); Hematocrit 37.9 % (37.0-47.0); Hemoglobin 12.5 g/dL (12.0-15.0); Immature Granulocyte Absolute 0.05 K/mm3 (0.00-0.031); Immature Granulocyte Percent A 0.4 % (0-0.5); Lymphocytes Percent Auto 7.6 % (18.3-44.2); Mean Corpuscular Hemoglobin 31.3 pg (26-34); Mean Corpuscular Volume 94.8 fl (80-100); Mean Platelet Volume 9.9 fl (7.4-10.4); Monocytes Absolute Auto 0.7 K/mm3 (0.1-0.6); Neutrophils Absolute Auto 10.2 K/mm3 (1.3-6.7); Neutrophils Percent Auto 85.9 % (45.5-73.1); Platelet Count Result 195 k/mm3 (150-375); Red Cell Distribution Width 13.5 % (11.5-14.5); White Blood Count 11.9 K/mm3 (4.5-10.0)
[2023-03-25 06:55] LABS: Anion Gap 5 mmol/L (8-16); Blood Urea Nitrogen 14 mg/dL (7-17); Calcium 8.4 mg/dL (8.4-10.2); Carbon Dioxide 27 mmol/L (22-30); Chloride 106 mmol/L (98-107); Estimated CRCL calculation 67 ml/min; Estimated Glomerular Filt Rate > 60; Glucose 111 mg/dL (65-110); Sodium 138 mmol/L (137-145)
[2023-03-25 09:26] VITALS: O2SAT 96
[2023-03-25] MEDS: ATORVASTATIN 10 MG TABLET PO (10:19)
[2023-03-25] MEDS: SENNA/DOCUSATE SODIUM TABLET 2 TAB PO ×2 (10:19→16:47)
[2023-03-25] MEDS: FAMOTIDINE 20 MG TABLET PO (10:19)
[2023-03-25] MEDS: polyethylene glycoL 3350 17 GM POWD.PACK PO (10:19)
[2023-03-25] MEDS: ASPIRIN 325 MG TABLET PO (10:20)
--- NOTE | 2023-03-25 13:10 | WPDANESPN ---
Anes - Prog Note Post-Op Date/Time: 03/25/23 13:10 Cardiovascular status: normal Respiratory status: normal Airway patency: baseline Mental status: baseline Post-Op hydration status: normal Vital Signs: Last Vital Signs Temp 36.8 C 03/25/23 06:00 Pulse 107 H 03/25/23 06:00 Resp 18 03/25/23 06:00 BP 125/78 03/25/23 06:00 Pulse Ox 96 03/25/23 09:26 O2 Del Method Room Air 03/25/23 09:26 O2 Flow Rate 6 03/24/23 13:30 Pain Score (VAS): 0/10 I/O: Intake & Output 03/24/23 03/25/23 03/25/23 23:59 07:59 15:59 Intake Total 290 1250 404 Output Total 500 Balance -210 1250 404 Laboratory Tests 03/25/23 06:08 03/25/23 06:08 03/25/23 06:08 WBC 11.9 H RBC 4.00 L Hgb 12.5 Hct 37.9 MCV 94.8 MCH 31.3 MCHC 33.0 RDW 13.5 Plt Count 195 MPV 9.9 Immature Gran % (Auto) 0.4 Neut % (Auto) 85.9 H Lymph % (Auto) 7.6 L [place] % (Auto) 6.0 Eos % (Auto) 0.0 Baso % (Auto) 0.1 L Lymph # (Auto) 0.90 [place] # (Auto) 0.7 H Eos # (Auto) 0.0 Baso # (Auto) 0.0 Abs Immat Gran (auto) 0.05 H Absolute Neuts (auto) 10.2 H Absolute Nucleated RBC 0.0 Nucleated RBC % 0.0 Sodium 138 Potassium 4.0 Chloride 106 Carbon Dioxide 27 Anion Gap 5 L BUN 14 D Creatinine 0.80 Estim Creat Clear Calc 67 Estimated GFR > 60 Glucose 111 H Calcium 8.4 Post-procedural complaints: none Patient Feedback: Patient satisfied with anesthetic care. Other Findings: nerve block works well.
[2023-03-25 13:50] VITALS: BP 117/73; PULSE 114; RESP 18; TEMP 36.9; O2SAT 98
--- NOTE | 2023-03-25 16:38 | PM.PNORT ---
Progress Note: A&P Assessment and Plan (1) DJD (degenerative joint disease) of knee: Qualifiers: Laterality: bilateral Osteoarthritis type: primary Qualified Code(s): M17.0 - Bilateral primary osteoarthritis of knee Code(s): M17.9 - Osteoarthritis of knee, unspecified Status: Acute Assessment and Plan: POD 1 DOING WELL. OK TO DC HOME F/U IN 3 WEEKS. Subjective Subjective Date/Time Seen: 03/25/23 16:38 Interval history: POD 1 DOING WELL. NO CALF PAIN. GOOD PROGRESS WITH PT Exam Extrem: Other: VSS AFEBRILE DRESSING DRY NV INTACT NEG HOMANS SIGN CALF SOFT NON TENDER Objective Data Vital Signs Vital Signs: Vital Signs - 24 hr 03/24/23 16:51 03/24/23 17:28 03/24/23 22:00 Temperature 36.0 C L 35.7 C L Pulse Rate 78 97 Respiratory Rate 12 16 Blood Pressure 135/75 139/71 Pulse Oximetry 97 96 Oxygen Delivery Room Air 03/25/23 01:00 03/25/23 06:00 03/25/23 09:26 Temperature 35.8 C L 36.8 C Pulse Rate 99 107 H Respiratory Rate 20 18 Blood Pressure 130/75 125/78 Pulse Oximetry 97 97 96 Oxygen Delivery Room Air 03/25/23 13:50 Temperature 36.9 C Pulse Rate 114 H Respiratory Rate 18 Blood Pressure 117/73 Pulse Oximetry 98 Oxygen Delivery Intake/Output Intake/Output: Intake & Output 03/22/23 03/23/23 03/24/23 03/25/23 23:59 23:59 23:59 23:59 Intake Total 840 2154 Output Total 850 Balance -10 2154 Meds/Results Medications: Active Medications Generic Name Dose Route Start Last Admin Trade Name Freq PRN Reason Stop Dose Admin Acetaminophen 1,000 mg 03/24/23 15:32 Acetaminophen 500 Mg Tablet PO Q6H PRN Pain Rated 1-3 Aspirin 325 mg 03/25/23 09:00 03/25/23 10:20 Aspirin 325 Mg Tablet PO 325 mg DAILY HENNA Administration Atorvastatin Calcium 10 mg 03/25/23 09:00 03/25/23 10:19 Atorvastatin 10 Mg Tablet PO 10 mg HS HENNA Administration Diazepam 5 mg 03/24/23 15:32 Diazepam (*Crx) 5 Mg Tablet PO Q8H PRN Spasms Diphenhydramine HCl 25 mg 03/24/23 15:32 Diphenhydramine Hcl Inj 50 Mg/Ml Vial IV PUSH Q6H PRN Itching Famotidine 20 mg 03/24/23 21:00 03/25/23 10:19 Famotidine 20 Mg Tablet PO 20 mg Q12HR HENNA Administration Ketorolac Tromethamine 15 mg 03/25/23 00:00 03/25/23 13:10 Ketorolac 15 Mg/Ml Vial (*Bkc) IV PUSH 03/25/23 18:01 15 mg Q6HR HENNA Administration Naloxone HCl 0.1 mg 03/24/23 15:32 Naloxone Hcl 0.4 Mg/Ml Vial IV PUSH Q2M PRN Opiate Reversal Ondansetron HCl 4 mg 03/24/23 15:32 03/24/23 18:45 Ondansetron Inj 4 Mg/2 Ml Vial IV PUSH 4 mg Q4H PRN Administration Nausea And Vomiting Oxycodone/Acetaminophen 1 tablet 03/24/23 15:32 Oxycodone/Acetaminophen (*Crx) 5-325 Mg Tablet PO Q4H PRN Pain Rated 4-6 Oxycodone/Acetaminophen 2 tablet 03/24/23 15:32 Oxycodone/Acetaminophen (*Crx) 5-325 Mg Tablet PO Q6H PRN Pain Rated 7-10 Polyethylene Glycol 17 gm 03/25/23 09:00 03/25/23 10:19 Polyethylene Glycol 3350 17 Gm Powd.Pack PO 17 gm QAM HENNA Administration Senna/Docusate Sodium 2 tab 03/24/23 17:00 03/25/23 10:19 Senna/Docusate Sodium Tablet PO 2 tab BID HENNA Administration Radiology Results: ITS Impressions Knee X-Ray 03/24/23 13:20 IMPRESSION: 1. Right total knee arthroplasty, negative for postoperative purposes. Labs Labs: Laboratory Results - last 24 hr 03/25/23 06:08 WBC 11.9 H RBC 4.00 L Hgb 12.5 Hct 37.9 MCV 94.8 MCH 31.3 MCHC 33.0 RDW 13.5 Plt Count 195 MPV 9.9 Immature Gran % (Auto) 0.4 Neut % (Auto) 85.9 H Lymph % (Auto) 7.6 L [place] % (Auto) 6.0 Eos % (Auto) 0.0 Baso % (Auto) 0.1 L Lymph # (Auto) 0.90 [place] # (Auto) 0.7 H Eos # (Auto) 0.0 Baso # (Auto) 0.0 Abs Immat Gran (auto) 0.05 H Absolute Neuts (auto) 10.2 H Absolute Nucleated RBC 0.0 Nucleated RBC % 0.0 Sodium 138 Potass
--- NOTE | 2023-03-25 16:40 | PM.DS ---
DS: Admitting Diagnosis Discharge Date 03/25/23 Admitting Diagnosis RIGHT KNEE DJD DS: Discharge Diagnosis Discharge Diagnosis (1) DJD (degenerative joint disease) of knee: Qualifiers: Osteoarthritis type: primary Laterality: bilateral Qualified Code(s): M17.0 - Bilateral primary osteoarthritis of knee Code(s): M17.9 - Osteoarthritis of knee, unspecified Status: Acute DS: Summary Hospital Course Reason for hospitalization: RIGHT TKA Hospital Course: PATIENT WAS ADMITTED S/P TOTAL KNEE ARTHROPLASTY FOR POSTOPERATIVE MEDICAL MANAGEMENT, PAIN CONTROL AND MOBILIZATION WITH PHYSICAL AND OCCUPATIONAL THERAPY. THE PATIENT PROGRESSED WELL WITH PT/OT. LABS AND VITALS REMAINED STABLE AND PAIN WELL CONTROLLED. THE PATIENT HAS BEEN CLEARED TO BE DISCHARGED HOME. FOLLOW UP APPOINTMENT SCHEDULED. DISCHARGE INSTRUCTIONS DISCUSSED AT LENGTH WITH THE PATIENT. MEDICATIONS REVIEWED. Status at Discharge Cognitive/behavioral status at discharge: STABLE Time Spent with Patient Time attestation: Total time spent providing and/or coordinating discharge services: DS: Data Data Completed and Pending Labs on day of discharge: Labs from last 24 hours 03/25/23 06:08 WBC 11.9 H RBC 4.00 L Hgb 12.5 Hct 37.9 MCV 94.8 MCH 31.3 MCHC 33.0 RDW 13.5 Plt Count 195 MPV 9.9 Immature Gran % (Auto) 0.4 Neut % (Auto) 85.9 H Lymph % (Auto) 7.6 L [place] % (Auto) 6.0 Eos % (Auto) 0.0 Baso % (Auto) 0.1 L Lymph # (Auto) 0.90 [place] # (Auto) 0.7 H Eos # (Auto) 0.0 Baso # (Auto) 0.0 Abs Immat Gran (auto) 0.05 H Absolute Neuts (auto) 10.2 H Absolute Nucleated RBC 0.0 Nucleated RBC % 0.0 Sodium 138 Potassium 4.0 Chloride 106 Carbon Dioxide 27 Anion Gap 5 L BUN 14 D Creatinine 0.80 Estim Creat Clear Calc 67 Estimated GFR > 60 Glucose 111 H Calcium 8.4 Discharge Plan Discharge Patient Disposition: Home Health Service Discharge Instructions: Per Care Coordination, patient to discharge with [facility] ) for PT/OT and [place] [facility] services. Agency will call to arrange initial visit. Post Op Total Knee Replacement Instructions Dr. Fish Grace [phone] Your dressing will be changed prior to your discharge. You will be sent home with one additional dressing to be changed on post op day 7 by the home health RN. Your sedrick will be removed on the 14th day after surgery and steri-strips will be placed. Please practice good hand hygiene and do not touch your incision in order to prevent infection. You may shower with your dressing but do not submerge in a bath tub. Do not drive or operate machinery until you are released by Dr. Grace. Do not walk without a walker for any reason until you are released by Dr. Grace. Continue to use your ice machine. Please use a towel or pillow case to protect your skin before applying your ice machine. Do NOT place a pillow under your knee. You may use a pillow from the calf down if needed. This will prevent a flexion contracture postoperatively. You may begin use of your CPM machine at home if you have been given one pre-operatively. DO NOT USE WHILE YOU ARE SLEEPING. Your first post op appointment was sent to you via mail preoperatively. If you have any questions or are unable to make your appointment, please contact our office for scheduling questions. Your medications have been sent to your pharmacy. You have been sent home with pain medication. Please fish bait picker an over the counter stool softener to prevent constipation due to narcotic use. Please keep this in mind during your postoperative recovery. If you are not experiencing regular bowel movements, please contact our office for further instruction. DVT prophylaxis, take Aspirin 325mg twice a day for 28 days. Please contact our office with any questions/concerns regarding your knee at [phone]. Patient Instructions: Antibiotic Form Stand Alone Forms:
--- NOTE | 2023-03-25 21:14 | PC.NURSE ---
Thid nurse reviewed all charting completed by Angeles Murcia (license pending) and agree with all entries for 03-24-23/03-25-23.
== END 2023-03-25 18:45 | disposition home health service (06) ==
LOC: ANHSURGERY 08:44 → ANH3MEDSUR 15:37
PROVIDERS: PCP Family Medicine; Visit Provider Orthopaedic Surgery
PROC: (CPT 27447; principal; 2023-03-24 10:30)
DX: M17.11 Unilateral primary osteoarthritis, right knee (principal); G89.18 Other acute postprocedural pain; F32.A Depression, unspecified; K21.9 Gastro-esophageal reflux disease without esophagitis; K76.0 Fatty (change of) liver, not elsewhere classified; F41.9 Anxiety disorder, unspecified; G89.29 Other chronic pain; K80.20 Calculus of gallbladder without cholecystitis without obstruction; E66.9 Obesity, unspecified; Z68.33 Body mass index [BMI] 33.0-33.9, adult; Z79.82 Long term (current) use of aspirin; Z86.73 Personal history of transient ischemic attack (TIA), and cerebral infarction without residual deficits; Z86.718 Personal history of other venous thrombosis and embolism
CPT/HCPCS: 27447; 64447; 36415; 73560; 80048; 80307; 81001; 82040; 83036; 85025; 85610; 85730; 86850; 86900; 86901; 87081; 87086; 97110; 97116; 97161; 97165; 97530; 97535; A9270; C1713; C1776; J0171; J0690; J1100; J1170; J1885; J2250; J2270; J2405; J2704; J2795; J3010; J7030; J7120

== ENCOUNTER 2023-05-12 09:03 | Outpatient (CLI) | payer OTHER, SELFPAY ==
[2023-05-12 09:47] LABS: Appearance Urine Clear (Clear); Bacteria Urine None Seen /hpf; Bilirubin Urine Negative (Negative); Blood Urine Negative (Negative); Color Urine Dark Yellow (Yellow); Glucose Urine UA Negative (Negative); Hyaline Casts Urine Present /lpf; Ketones Urine Trace mg/dL (Negative); Leukocyte Esterase Ur 1+ LEU/UL (Negative); Mucus Urine Present /lpf; Nitrate Urine Negative (Negative); Protein Urine Trace mg/dL (Negative); RBC Urine 0-2 /hpf (0-2); Specific Grav Ur 1.024 (1.001-1.035); Squamous Epithelial Cell Urine Occasional /hpf (Few); WBC Urine 0-5 /hpf
[2023-05-12 09:48] LABS: Add Urine Microscopic? YES
[2023-05-12 09:57] LABS: Albumin Level 4.1 g/dL (3.5-5.1)
[2023-05-12 10:33] LABS: Urine Cotinine NEGATIVE
[2023-05-12 11:55] LABS: Prothrombin Time 13.3 Seconds (11.1-14.7)
[2023-05-12 11:56] LABS: Partial Thromboplastin Time 27.8 SECONDS (22.3-36.8)
== END 2023-05-12 09:04 | disposition home or self-care (01) ==
LOC: ANHSURGERY 09:06
PROVIDERS: PCP Family Medicine; Visit Provider Orthopaedic Surgery
DX: M17.9 Osteoarthritis of knee, unspecified (principal); Z01.818 Encounter for other preprocedural examination
CPT/HCPCS: 80307; 81001; 82040; 85610; 85730; 86850; 86900; 86901; 87081

== ENCOUNTER 2023-05-19 02:23 | Day surgery (SDC) | payer OTHER, SELFPAY ==
[2023-05-11 12:39] VITALS: BMI 31.8
--- NOTE | 2023-05-11 12:48 | PC.NURSE ---
Report to the Outpatient Waiting Room, entrance under the green pavilion located off [facility], at time 8:30 on date 05/19/23. Planned Procedure Time: 10:30. Time changes happen often and if your time is changed the preop area will call you the afternoon before. - You and your visitor will be asked to self-screen and do not enter if you have any COVID symptoms. - A mask is optional within the hospital at this time. Patients may have clear liquids (water, carbonated beverages, clear teas, apple juice) until 3 hours prior to surgery (7:30) with a maximum of 20 ounces. - No food from midnight until time of surgery Take the following medications with a SIP of water the morning of surgery: NONE DO NOT STOP ANY OF YOUR OTHER PRESCRIPTION MEDICATIONS PRIOR TO SURGERY ?EXCEPT THE FOLLOWING Medications to discontinue per physician: ASPIRIN Date to take last dose: 05/11/23 Please no make-up, nail pitcairn islander, hairspray, perfume, deodorant, or body powder the day of surgery. No jewelry (including any body piercings) or valuables the day of surgery, leave them at home. Please take a shower or bath the night before, or the morning of, surgery with an antibacterial soap. Wear comfortable, loose fitting clothing. - Jewelry must be removed prior to entering the operating room. Rings and piercings that are not removed may be cut off. - The hospital will not accept responsibility for valuables. - Please leave all valuables, including medications, at home the day of surgery. If you are going home after surgery, a licensed clark driver must drive you home. - NO public transportation without another adult if you receive anesthesia. - We recommend that an adult stay with you for 24 hours following discharge. - We also recommend that you do not drive, make important decision, drink alcoholic beverages, or take any drugs that were not prescribed by your health care provider for at least 24 hours after your discharge time. Follow any additional instructions given to you from your surgeon. If you or anyone in your household have experienced Covid symptoms in the past week, please notify your surgeon or the nurse liaison at the phone number below for possible testing. Telephone instructions given to PT - KAHLIL GARG and asked if any additional questions and then verbalized understanding. Patient advised to call surgeon office or pre surgery nurse liaison [phone] if any additional questions.
[2023-05-19] VITALS (14 sets, daily range): BP systolic 136–157; BP diastolic 79–99; PULSE 98–119; RESP 6–18; TEMP 36.2–36.7; O2SAT 93–98
--- NOTE | ~2023-05-19 | XR_ITS ---
EXAMINATION: [id number] DATE: 05/19/2023 14:00 INDICATION: Postoperative evaluation following left total knee arthroplasty. TECHNIQUE: Anteroposterior and lateral views of the left knee were obtained. COMPARISON: None. FINDINGS: Left total knee arthroplasty without patellar resurfacing appears well seated and in near anatomic al ignment. No fractures identified. Anterior skin sedrick and expected postoperative subcutaneous, int ramedullary and intra-articular gas. IMPRESSION: 1. Left total knee arthroplasty, negative for postoperative purposes. Reviewed, dictated and finalized at location A.
--- NOTE | 2023-05-19 07:12 | WPDHPUPDATE1 ---
History and Physical Update Update Date/Time: 05/19/23 07:12 History and Physical has been reviewed, including an updated exam of the patient. There are NO changes in the patient's condition. Risks, benefits, and alternatives have been discussed and questions answered. Patient agrees to proceed with procedure.
--- NOTE | 2023-05-19 09:00 | WPDANESEPPF ---
Anes - Initial Pre Proc Eval Procedure: Operation Date: 05/19/23 10:30 Proposed Procedures p Left Total Knee Arthroplasty - Fish Grace MD Date/Time: 05/19/23 09:00 Surgeon: Fish Grace MD Pre Op Diagnosis: Lt Knee DJD Patient Data Age: 63 Gender: F Height: 1.6 m Weight: 81.65 kg Allergies Allergy/AdvReac Type Severity Reaction Status Date / Time clavulanic acid Allergy Mild Hives Verified 05/19/23 09:44 [From Augmentin] Home Medications Medication Instructions Recorded Confirmed Type omeprazole magnesium 20 mg 20 mg PO DAILY 06/09/19 05/19/23 History tablet,delayed release (Prilosec OTC) aspirin 325 mg tablet 325 mg PO DAILY 04/28/21 05/19/23 History acyclovir 400 mg tablet 400 mg PO DAILY #90 tabs 07/08/22 05/19/23 Rx duloxetine 60 mg capsule,delayed 60 mg PO DAILY 03/11/23 05/19/23 History release atorvastatin 10 mg tablet 10 mg PO DAILY #90 tabs 03/23/23 05/19/23 Rx celecoxib 200 mg capsule (Celebrex) 200 mg PO DAILY PRN pain #30 caps 03/23/23 05/11/23 Rx Patient hx anesthesia problems: none Family hx anesthesia problems: none Results Review: All pre-operative results and documents have been reviewed as part of the pre-operative evaluation. [facility] Past Medical History Medical History Anxiety Asymptomatic microscopic hematuria Blood typing encounter (03/11/23) AB+, antibody negative BMI 31.0-31.9,adult Breast cancer screening by mammogram Cholelithiasis multiple gallstones on ultrasound with mild thickening of the gallbladder wall and fatty changes the liver. Chronic neck pain Chronic pain of right wrist Colon cancer screening (05/12/21) normal colonoscopy 05/12/2021 with internal hemorrhoids and diverticulosis, we will recheck in 10 years CVA (cerebral vascular accident) age 46 Degenerative joint disease of hand, left Depression DVT (deep venous thrombosis) Elevated alkaline phosphatase level alkaline phosphatase 154 with AST 28 and ALT 36 on 09/26/2022, previous 127, 120, 106. Elevated liver function tests Fatty infiltration of liver fatty changes of the liver on abdominal ultrasound 11/23/2022. Fever blister Gastroenteritis GERD (gastroesophageal reflux disease) Left ureteral stone (04/24/22) 2 mm distal left ureteral stone 04/24/2022 with bilateral renal stones. Obese Obesity (BMI 30.0-34.9) Right wrist pain UTI (urinary tract infection) Weight gain Family History Family History Father Patient's father is Acute myocardial infarction Mother Cerebrovascular accident Social History Social History Smoking status: Never smoker Second hand tobacco smoke exposure: Yes (SPOUSE) Additional smoking assessment comments: PT DENIES ALL FORMS OF TOBACCO USE Alcohol intake: current Alcohol use details: VERY RARE Substance use: never Substance use type: does not use Lack of Transportation: No Lack of Food: Never True Current Housing: I Have Housing Concerned About Future Housing: No Difficulty Paying Gas/Electric Bills: No Difficulty Paying for Meds: No Currently Unemployed: No Education: Don't Know Difficulty w/ Childcare or Family Care: No Living arrangements: with family Spiritual care concerns: No Anes - Eval Final PreProcedure Day of Procedure 05/19/23 09:00 Patient weight: obese Heart: regular rate and rhythm Lungs: clear to auscultation Airway: Mallampati scale class II Neurological: alert and oriented Last oral intake: >/= 8 hours ASA classification: III Emergent: no Anesthetic plan: proceed Anesthesia type and monitoring: general LMA and standard monitoring Results Review: All pre-operative results and documents have been reviewed as part of the pre-operative evaluation. Informed Consent: The patient's anesthetic pl
[2023-05-19] MEDS: TRANEXAMIC ACID 1,000MG/ISO100 1,000 MG/100 ML BAG 200 MG IVPB (09:37)
[2023-05-19] MEDS: LACTATED RINGERS 1,000 ML 30 ML IV CONT ×2 (09:37→13:32)
[2023-05-19] MEDS: ACETAMINOPHEN 500 MG TABLET 1000 MG PO (09:38)
--- NOTE | 2023-05-19 09:59 | WPDANESPNB ---
Anes - Peripheral Nerve Block Date/Time: 05/19/23 09:59 I have discussed with the patient/family/POA the placement of a peripheral nerve block for post-operative pain management, including associated risks, benefits, complications, and side effects. Alternative methods of post-operative analgesia were detailed. Questions were solicited and answers provided to the satisfaction of the patient/family/POA. Time-Out: A pre-procedural Time-Out was completed immediately before starting the procedure and confirmed: Patient Identification, Site, Procedure, Patient Position and the Availability of Requisite Equipment. Clinical Indications: Acute post-operative pain management requested by the operative surgeon. Nerve Block Insertion Note Anes-nerve block: adductor canal left Patient position: supine Skin prep: chlorhexidine Needle: 22 gauge, stimulating, insulated echogenic needle. Needle length: 80 mm Technique: ultrasound Injectate: bupivacaine 0.5% with epi 5 mcg/ml (30cc - no epi) Observations: tolerated well Complications: none Procedure start time:: 1027 Procedure end time:: 1030
[2023-05-19] MEDS: ceFAZolin 2 GM/D5W 50 ML 2 GM/50 ML BAG IVPB ×2 (10:40→18:00)
[2023-05-19] MEDS: TRANEXAMIC ACID 1,000 MG/10 ML AMPUL 1000 MG IV PUSH (12:33)
--- NOTE | 2023-05-19 13:27 | W.PM.PROC2 ---
Procedure Note - Detailed Date of Procedure 05/19/23 Pre-op Diagnosis Lt Knee DJD Post-op Diagnosis Same Procedure Performed L TKA Surgeon Fish Grace MD Anesthesia General Description of Procedure THE LEFT KNEE WAS PREPPED AND DRAPED IN THE STERILE FASHION. THERE WAS A 10 DEGREE FLEXION CONTRACTURE. A MIDLINE SKIN INCISION WAS MADE. A MEDIAL PARAPATELLAR ARTHROTOMY WAS MADE. THE PATELLA WAS EVERTED. THERE WAS TRICOMPARTMENT DJD. THERE WAS MINIMAL PATELLA DJD. AN INTRAMEDULLARY SRI WAS PLACED IN THE FEMUR. A DISTAL FEMORAL CUT WAS MADE IN 5 DEGREES OF VALGUS REMOVING APPROXIMATELY 9 MM OF BONE FROM THE DISTAL FEMUR. THE FEMUR WAS SIZED TO 62.5. A 62.5 FEMORAL CUTTING BLOCK WAS PLACED IN 3 DEGREES OF EXTERNAL ROTATION AND IN ALIGNMENT WITH PETRA'S LINE AND THE TRANSEPICONDYLAR AXIS. ANTERIOR POSTERIOR AND CHAMFER CUTS WERE MADE. THE CUTS WERE EXCELLENT. NEXT AN INTRAMEDULLARY CUTTING GUIDE WAS PLACED IN THE TIBIA. A TRANS TIBIAL CUT WAS MADE ALONG THE LONG AXIS OF THE TIBIA. APPROXIMATELY 10 MM OF BONE WAS REMOVED FROM THE HIGH SIDE OF THE TIBIA. THE TIBIA WAS THEN PLANED TO A SMOOTH SURFACE. POSTERIOR FEMORAL OSTEOPHYTES WERE REMOVED FROM THE FEMORAL CONDYLES. A 71 TIBIAL TRIAL WAS PLACED IN ALIGNMENT WITH THE 1/3 MEDIAL ASPECT OF THE TIBIAL TUBERCLE. THEN A 62.5 FEMORAL TRIAL COMPONENT WAS PLACED. BOTH HAD EXCELLENT FITS. EVENTUALLY AN 11 MM CR POLYETHYLENE TRIAL COMPONENT WAS PLACED. THE KNEE WAS TAKEN THROUGH A RANGE OF MOTION. THE KNEE CAME OUT TO FULL EXTENSION. THERE WAS NO ABNORMAL TILT TO THE PATELLA. THERE WAS GOOD A/P AND VARUS/VALGUS STABILITY. THERE WAS NO EXCESSIVE ROLL BACK WITH FLEXION. THE TRIAL COMPONENTS WERE REMOVED. THEN A 62.5 FEMORAL COMPONENT AND 71 TIBIAL COMPONENT WITH AN 11 CR POLYETHYLENE COMPONENT WERE CEMENTED INTO PLACE. ONCE THE CEMENT WAS HARD THE KNEE WAS TAKEN THROUGH A ROM AGAIN AND FOUND TO BE STABLE WITH NO PATELLA TILT NO EXCESSIVE ROLL BACK WITH FLEXION AND GOOD STABILITY WITH COMPLETE AND FULL EXTENSION. THE KNEE WAS IRRIGATED WITH STERILE BETADINE AND WATER FOR ABOUT 3 MINUTES. THE BLEEDERS WERE CAUTERIZED. THE ARTHROTOMY WAS REPAIRED WITH NUMBER 1 VICRYL. THE SUB CUTANEOUS LAYER WITH 2-0 VICRYL AND THE SKIN WITH ALIDA. THE WOUND WAS WASHED AND A STERILE DRESSING WAS APPLIED. PATIENT WAS EXTUBATED. Estimated Blood Loss 125 Pathology None sent Complications No immediate complications Condition Stable Disposition PACU
--- NOTE | 2023-05-19 15:35 | ADMGEN ---
This patient, [place] Morgan, was admitted to [address] [place] [address] Room 307-02. Patient/family oriented to hospital policies and general routines including ID bracelet, bed and alarms, visiting hours, pain management, procedures, bathroom and other care routines, personal items, smoking policy, room service/diet, and visiting hours. Information on how to activate the Rapid Response Team has been discussed. Patient/Family are encouraged to report perceived risks to care and to ask questions if they do not understand what they are told or what they should do.
[2023-05-19] MEDS: KETOROLAC 15 MG/ML VIAL (*BKC) IV PUSH ×2 (16:42→23:07)
[2023-05-19] MEDS: SODIUM CHLORIDE 0.9% IV 1,000 ML 125 ML IV CONT (16:43)
[2023-05-19] MEDS: SENNA/DOCUSATE SODIUM TABLET 2 TAB PO (16:43)
[2023-05-19] MEDS: ONDANSETRON INJ 4 MG/2 ML VIAL IV PUSH (18:09)
[2023-05-19] MEDS: oxyCODONE/ACETAMINOPHEN (*CRX) 5-325 MG TABLET 1 TABLET PO (18:09)
[2023-05-19] MEDS: ASPIRIN 325 MG ENTERIC TABLET PO (20:52)
[2023-05-20] VITALS: BP 137/70; PULSE 94; RESP 14; TEMP 36.3; O2SAT 97
[2023-05-20] MEDS: ceFAZolin 2 GM/D5W 50 ML 2 GM/50 ML BAG IVPB ×2 (02:44→10:46)
[2023-05-20 04:59] VITALS: BP 114/72; PULSE 100; RESP 16; TEMP 36.4; O2SAT 98
[2023-05-20] MEDS: KETOROLAC 15 MG/ML VIAL (*BKC) IV PUSH ×2 (05:00→10:59)
[2023-05-20 06:45] LABS: Basophils Percent Auto 0.1 % (0.2-1.2); Eosinophils Percent Auto 0.1 % (0-4.4); Hematocrit 37.2 % (37.0-47.0); Hemoglobin 11.6 g/dL (12.0-15.0); Immature Granulocyte Absolute 0.04 K/mm3 (0.00-0.031); Immature Granulocyte Percent A 0.4 % (0-0.5); Lymphocytes Absolute Auto 0.83 K/mm3 (0.9-3.2); Lymphocytes Percent Auto 7.8 % (18.3-44.2); Mean Corpuscular HGB Conc 31.2 g/dl (32-36); Mean Corpuscular Hemoglobin 29.7 pg (26-34); Mean Corpuscular Volume 95.4 fl (80-100); Mean Platelet Volume 10.8 fl (7.4-10.4); Monocytes Absolute Auto 0.7 K/mm3 (0.1-0.6); Monocytes Percent Auto 6.2 % (2.6-8.5); Neutrophils Absolute Auto 9.1 K/mm3 (1.3-6.7); Neutrophils Percent Auto 85.4 % (45.5-73.1); Platelet Count Result 197 k/mm3 (150-375); Red Cell Distribution Width 12.9 % (11.5-14.5); White Blood Count 10.6 K/mm3 (4.5-10.0)
[2023-05-20 06:53] LABS: Anion Gap 5 mmol/L (8-16); Blood Urea Nitrogen 17 mg/dL (7-17); Calcium 8.5 mg/dL (8.4-10.2); Carbon Dioxide 28 mmol/L (22-30); Chloride 105 mmol/L (98-107); Estimated CRCL calculation 64 ml/min; Estimated Glomerular Filt Rate > 60; Glucose 118 mg/dL (65-110); Potassium 3.6 mmol/L (3.4-5.0); Sodium 138 mmol/L (137-145)
[2023-05-20] MEDS: polyethylene glycoL 3350 17 GM POWD.PACK PO (08:56)
[2023-05-20] MEDS: ATORVASTATIN 10 MG TABLET PO (08:57)
[2023-05-20] MEDS: PANTOPRAZOLE 40 MG TABLET PO (08:57)
[2023-05-20] MEDS: ACYCLOVIR 400 MG TABLET PO (08:58)
[2023-05-20 08:59] VITALS: BP 137/79; PULSE 99; RESP 16; TEMP 36.9; O2SAT 98
[2023-05-20] MEDS: ASPIRIN 325 MG ENTERIC TABLET PO (08:59)
[2023-05-20] MEDS: DULoxetine HCL 60 MG CAPSULE.DR PO (09:00)
[2023-05-20] MEDS: SENNA/DOCUSATE SODIUM TABLET 2 TAB PO (09:47)
--- NOTE | 2023-05-20 12:12 | PM.PNORT ---
Progress Note: A&P Assessment and Plan (1) S/P total knee arthroplasty: Qualifiers: Laterality: left Qualified Code(s): Z96.652 - Presence of left artificial knee joint Code(s): Z96.659 - Presence of unspecified artificial knee joint Status: Acute Assessment and Plan: POD #1 : Left TKA Continue PT/OT. WBAT. Walker. HIGH FALL RISK. Continue pain control. Ice Knee. Protect skin. DVT prophylaxis with Aspirin. SCDs. Incentive Spirometry Use reviewed. Monitor Dressing. Change prior to discharge. Bowel Regimen. Dispo: Home with Home Health pending progress with PT/OT Plan Reviewed postoperative labs, vitals and exam with attending physician, Dr. Grace. Agrees with current plan as indicated above. No further recommendations at this time. Dr. Grace as independently examined the patient to evaluate her EHL nerve palsy. Subjective Subjective Date/Time Seen: 05/20/23 12:12 Post Op day: 1 Interval history: POD #1: Left TKA Patient doing well. Working well with PT/OT. Concerns about inability to flex great toe of the left knee. Otherwise, no new concerns. Review of Systems Review of Systems: All systems reviewed & are unremarkable except as noted in HPI and below Constitutional: Constitutional: Denies fever(s) and Denies headache(s) ENT: Denies headache(s) Cardiovascular: Cardiovascular: Denies chest pain, Denies diaphoresis, Denies palpitations and Denies dyspnea Respiratory: Respiratory: Denies dyspnea Gastrointestinal: Gastrointestinal: Denies abdominal pain, Denies constipation, Denies nausea and Denies vomiting Genitourinary: Genitourinary: Reports nocturia and Denies dysuria Musculoskeletal: Musculoskeletal: Reports arthralgias (Left Knee ), Reports joint swelling (Left Knee ) and Reports limited range of motion (ROM limited due to recent surgical intervention LEFT Knee ) Neurologic: Denies headache(s) Endocrine: Endocrine: Denies palpitations Exam Const: General: comfortable and no acute distress Resp: Effort & Inspection: normal respiratory effort Cardio: Rate: regular rate Rhythm: regular rhythm GI: GI Palp: Yes Soft to palpation, No Tenderness to palpation present (GI) and No Guarding due to palpation present (GI) Skin: General skin exam: wounds noted (see extremity assessment ) Wounds: wounds noted (see extremity assessment ) Neuro: Cognition (Neuro): normal cognition Other: NV intact aside from block. Moves toes. Sensation intact to light touch. +ankle dorsiflexion/plantarflexion. Extrem: Left lower extremity: normal to inspection, normal capillary refill, knee Details: tenderness (diffuse ) Location: of the patella, swelling (moderate consistent to recent surgery ), abnormal ROM (limited due to recent surgery ) Details: pain with active ROM and pain with passive ROM and ecchymosis (as expected with recent surgery. NO hematoma. ), lower leg (Negative Gayathri's Sign ), ankle (+ankle dorsiflexion/plantarflexion ) Details: normal to inspection, no edema and normal ROM; no tenderness and no swelling and foot Details: normal capillary refill, toes with normal ROM, vascular exam Details: dorsalis pedis pulse present, tendon exam active extension normal of the great toe and motor-sensory exam light-touch abnormal in the great toe; no tenderness Other: Incision left TKA dressing c/d/i. No hematoma. No signs of infection. No wound dehiscence. 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 Patient is unable to extend the left great toe. She reports some numbness on the plantar aspect. Dr. Grace has evaluated patient. Recommend ambulation with shoes on. We will continue to monitor. Psych: Mental Status: mental status grossly normal Objective Data Vital Signs Vital Signs: Vital Signs - 24 hr 05/19/23 13:32 05/19/23 13:45 05/19/23 14:00 Temperature 36.7 C Pulse Rate 109 H 107 H 115 H Respiratory Rate 6 L 6 L 10 L Blood Pressur
[2023-05-20 12:59] VITALS: BP 155/79; PULSE 97; RESP 14; TEMP 36.8; O2SAT 97
--- NOTE | 2023-05-20 13:21 | PCCCNOTE ---
On 05/20/23, the student, Samantha Stauffer, provided care and completed [facility] documentation on this patient. I have reviewed the student's documentation and agree with the findings.
--- NOTE | 2023-05-20 14:20 | WPDANESPN ---
Anes - Prog Note Post-Op Date/Time: 05/20/23 14:20 Vital Signs: Last Vital Signs Temp 36.9 C 05/20/23 08:59 Pulse 99 05/20/23 08:59 Resp 16 05/20/23 08:59 BP 137/79 05/20/23 08:59 Pulse Ox 98 05/20/23 08:59 O2 Del Method Room Air 05/20/23 08:12 O2 Flow Rate 2 05/19/23 15:13 Pain Score (VAS): 3 I/O: Intake & Output 05/19/23 05/20/23 05/20/23 23:59 07:59 15:59 Intake Total 170 272 290 Balance 170 272 290 Laboratory Tests 05/20/23 06:08 05/20/23 06:08 05/20/23 06:08 WBC 10.6 H RBC 3.90 L Hgb 11.6 L Hct 37.2 MCV 95.4 MCH 29.7 MCHC 31.2 L RDW 12.9 Plt Count 197 MPV 10.8 H Immature Gran % (Auto) 0.4 Neut % (Auto) 85.4 H Lymph % (Auto) 7.8 L [place] % (Auto) 6.2 Eos % (Auto) 0.1 Baso % (Auto) 0.1 L Lymph # (Auto) 0.83 L [place] # (Auto) 0.7 H Eos # (Auto) 0.0 Baso # (Auto) 0.0 Abs Immat Gran (auto) 0.04 H Absolute Neuts (auto) 9.1 H Absolute Nucleated RBC 0.0 Nucleated RBC % 0.0 Sodium 138 Potassium 3.6 Chloride 105 Carbon Dioxide 28 Anion Gap 5 L BUN 17 Creatinine 0.80 Estim Creat Clear Calc 64 Estimated GFR > 60 Glucose 118 H Calcium 8.5 Patient Feedback: Patient satisfied with anesthetic care.
--- NOTE | 2023-05-20 14:58 | PM.DS ---
DS: Admitting Diagnosis Discharge Date 05/20/2023 Admitting Diagnosis Left TKA DS: Discharge Diagnosis Discharge Diagnosis (1) S/P total knee arthroplasty: Qualifiers: Laterality: left Qualified Code(s): Z96.652 - Presence of left artificial knee joint Code(s): Z96.659 - Presence of unspecified artificial knee joint Status: Acute Assessment and Plan: POD #1 : Left TKA Continue PT/OT. WBAT. Walker. HIGH FALL RISK. Continue pain control. Ice Knee. Protect skin. DVT prophylaxis with Aspirin. SCDs. Incentive Spirometry Use reviewed. Monitor Dressing. Change prior to discharge. Bowel Regimen. Dispo: Home with Home Health pending progress with PT/OT Plan Reviewed postoperative labs, vitals and exam with attending physician, Dr. Grace. Agrees with current plan as indicated above. No further recommendations at this time. Dr. Grace as independently examined the patient to evaluate her EHL nerve palsy. DS: Summary Hospital Course Reason for hospitalization: Left TKA Hospital Course: 63 year old female admitted s/p Left TKA for postoperative medical management, pain control and mobilization with PT/OT. Patient progressed well with PT/OT. Pain and vitals remained stable throughout. The patient has been cleared to be discharged home with home health at this time. All discharge care instructions reviewed at depth. New medications reviewed. Follow up planned for 3 weeks in the outpatient orthopedic clinic with Dr. Grace. Dr. Grace in agreement with discharge at this time. Status at Discharge Functional status at discharge: uses cane/walker Overall status at discharge: patient is progressing back to baseline Time Spent with Patient Time attestation: Total time spent providing and/or coordinating discharge services: Exam Const: General: comfortable and no acute distress Resp: Effort & Inspection: normal respiratory effort Cardio: Rate: regular rate Rhythm: regular rhythm Skin: General skin exam: wounds noted (see extremity assessment ) Wounds: wounds noted (see extremity assessment ) Neuro: Cognition (Neuro): normal cognition Other: NV intact aside from block. Moves toes. Sensation intact to light touch. +ankle dorsiflexion/plantarflexion. Extrem: Left lower extremity: normal to inspection, normal capillary refill, knee Details: tenderness (diffuse ) Location: of the patella, swelling (moderate consistent to recent surgery ), abnormal ROM (limited due to recent surgery ) Details: pain with active ROM and pain with passive ROM and ecchymosis (as expected with recent surgery. NO hematoma. ), lower leg (Negative Gayathri's Sign ), ankle (+ankle dorsiflexion/plantarflexion ) Details: normal to inspection, no edema and normal ROM; no tenderness and no swelling and foot Details: normal capillary refill, toes with normal ROM, vascular exam Details: dorsalis pedis pulse present, tendon exam active extension normal of the great toe and motor-sensory exam light-touch abnormal in the great toe; no tenderness Other: Incision left TKA dressing c/d/i. No hematoma. No signs of infection. No wound dehiscence. 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 Patient is unable to extend the left great toe. She reports some numbness on the plantar aspect. Dr. Grace has evaluated patient. Recommend ambulation with shoes on. We will continue to monitor. Psych: Mental Status: mental status grossly normal DS: Data Data Completed and Pending Labs on day of discharge: Labs from last 24 hours 05/20/23 06:08 WBC 10.6 H RBC 3.90 L Hgb 11.6 L Hct 37.2 MCV 95.4 MCH 29.7 MCHC 31.2 L RDW 12.9 Plt Count 197 MPV 10.8 H Immature Gran % (Auto) 0.4 Neut % (Auto) 85.4 H Lymph % (Auto) 7.8 L [place] % (Auto) 6.2 Eos % (Auto) 0.1 Baso % (Auto) 0.1 L Lymph # (Auto) 0.83 L [place] # (Auto) 0.7 H Eos # (Auto) 0.0 Baso # (Auto) 0.0 Abs Immat Gran (auto) 0.04 H
== END 2023-05-20 15:45 | disposition home health service (06) ==
LOC: ANHSURGERY 09:10 → ANH3MEDSUR 15:19
PROVIDERS: PCP Family Medicine; Visit Provider Orthopaedic Surgery
PROC: (CPT 27447; principal; 2023-05-19 10:30)
DX: M17.12 Unilateral primary osteoarthritis, left knee (principal); F41.9 Anxiety disorder, unspecified; F32.A Depression, unspecified; K21.9 Gastro-esophageal reflux disease without esophagitis; G89.18 Other acute postprocedural pain; Z86.73 Personal history of transient ischemic attack (TIA), and cerebral infarction without residual deficits; Z86.718 Personal history of other venous thrombosis and embolism; Z82.3 Family history of stroke; Z79.82 Long term (current) use of aspirin; E66.9 Obesity, unspecified; Z68.31 Body mass index [BMI] 31.0-31.9, adult
CPT/HCPCS: 64447; 27447; 36415; 73560; 80048; 80307; 81001; 82040; 85025; 85610; 85730; 86850; 86900; 86901; 87081; 97110; 97116; 97161; 97165; 97530; A9270; C1713; C1776; J0171; J0690; J1100; J1170; J1885; J2250; J2270; J2371; J2405; J2704; J2795; J3010; J7030; J7120

== ENCOUNTER 2024-02-07 13:20 | Outpatient (CLI) | payer OTHER, SELFPAY ==
--- NOTE | ~2024-02-07 | MM_ITS ---
EXAMINATION: MM screening jose BI w ifeoma HISTORY: Screening TECHNIQUE: Craniocaudal and mediolateral oblique 3-D tomosynthesis images were obtained and synthetic 2-D images were generated. CAD analysis was submitted and interpreted. COMPARISON: Comparison to multiple prior studies sequentially, with oldest reviewed study dated 02/15. BREAST PARENCHYMAL COMPOSITION: Not dense: There are scattered areas of fibroglandular density. FINDINGS: There is no evidence of suspicious mass, calcification, or architectural distortion to sugg est malignancy in either breast. There has been no suspicious interval change. IMPRESSION: 1. No mammographic evidence of malignancy. 2. Recommend routine screening mammography in one year. BI-RADS Category 1: Negative Reviewed, dictated and finalized at location B.
== END 2024-02-07 13:21 ==
PROVIDERS: PCP Obstetrics & Gynecology; Visit Provider Family Medicine
DX: Z12.31 Encounter for screening mammogram for malignant neoplasm of breast (principal)
CPT/HCPCS: 77063; 77067